=== PATIENT | female | born 1940 | race Two or more races ===

== ENCOUNTER 2018-06-03 12:35 | Emergency (ER) | payer OTHER ==
[~2018-06-03] VITALS: Ht 152.4 cm; Wt 72.6 kg
[~2018-06-03 12:35] MED LIST: ASA325 M1; ENALAPRIL MALEA10 MG; GLIPIZIDE10 MG; METFORMIN HCL1000 MG; ONGLIZA
[2018-06-03] MEDS ORDERED: HYDROCHLOROTHIA25 MG (13:27)
[2018-06-03] MEDS ORDERED: FENOFIBRATE145 MG (13:28)
[2018-06-03] MEDS ORDERED: JANUMET XR 50-1 EAC1 (13:28)
== END 2018-06-03 16:37 | disposition home or self-care (01) ==
LOC: ER 12:42
DX: G89.11 Acute pain due to trauma (principal); M79.605 Pain in left leg; M25.552 Pain in left hip

== ENCOUNTER 2018-06-13 09:42 | Emergency (ER) | payer OTHER ==
[~2018-06-13] VITALS: Ht 149.9 cm; Wt 79.8 kg
[~2018-06-13 09:42] MED LIST changes: +FENOFIBRATE145 MG; +HYDROCHLOROTHIA25 MG; +JANUMET XR 50-1 EAC1
[2018-06-13] MEDS ORDERED: HYZAAR 50-12.51 EACH (09:52)
[2018-06-13] MEDS ORDERED: NABUMETONE500 MG (09:53)
[2018-06-13] MEDS ORDERED: OMEPRAZOLE40 MG (09:53)
== END 2018-06-13 17:17 | disposition home or self-care (01) ==
LOC: ER 09:42
DX: R11.11 Vomiting without nausea (principal); R10.13 Epigastric pain